=== PATIENT | female | born 1990 | race Caucasian/White ===

== ENCOUNTER → 2019-11-03 18:18 | Outpatient (CLI) | payer SELFPAY ==
[2019-11-03 20:42] LABS: Chlamydia Trachomatis by PCR Negative (Negative); Neisserai gonorrhoeae by PCR Negative (Negative); Probe Check PASS; Sample Adequacy Control PASS; Specimen Processing Control PASS
[2019-11-09 09:04] LABS: HPV APTIMA, High Risk Positive (Negative)
[2019-11-09 09:05] LABS: HPV Reflexed? YES, CHARGE PATIENT
== END ==
PROVIDERS: Referring Provider Obstetrics & Gynecology; Visit Provider Obstetrics & Gynecology
DX: Z12.4 Encounter for screening for malignant neoplasm of cervix (principal); Z11.3 Encounter for screening for infections with a predominantly sexual mode of transmission
CPT/HCPCS: 87491; 87591; 87624; 88175; G0145

== ENCOUNTER → 2019-11-17 16:04 | Outpatient (CLI) | payer SELFPAY ==
[2019-11-17 16:39] LABS: Color, Urine Yellow (Yellow); Glucose, Dipstick Normal (Normal); Ketone-Dipstick Negative (Negative); Leukocyte Esterase-Dipstick Negative /ul (Negative); Nitrite-Dipstick Negative (Negative); Occult Blood-Urine 25 /ul (Negative); Protein-Dipstick Negative (Negative); Urine Bilirubin Dipstick Negative (Negative); Urine Clarity Sl. Cloudy (Clear); Urine Urobilinogen Normal (Normal); Urine pH 6.5 (5.0 - 8.0)
[2019-11-17 16:41] LABS: Absolute Lymphocyte Count 1.59 X10^3/uL (0.83-4.51); Absolute Neutrophil Count 7.1 X10^3/uL (2.0-7.7); Basophil# 0.02 X10^3/uL; Basophil% 0.2 % (0-1); Eosinophil# 0.05 X10^3/uL; Eosinophils% 0.5 % (0-5); Hematocrit 36.2 % (37-47); Lymphocyte # 1.59 X10^3/ul (4.0); Lymphocyte % 17.2 % (19-41); Mean Corp Hgb Conc 33.1 g/dL (32-36); Mean Corpuscular Hgb 28.9 pg (27.0-32.0); Mean Corpuscular Volume 87.2 fL (81-99); Mean Platelet Vol. 9.3 fl (6.2-12.0); Monocyte# 0.42 X10^3/uL; Monocyte% 4.6 % (0-10); NRBC Flagged by Analyzer 0 % (0-5); Neutrophil # 7.12 X10^3/uL (2.7-7.7); Neutrophil % 77.3 % (47-70); Platelet Count 230 K/mm3 (150-450); RBC Distribution Width CV 13.4 % (11.6-14.6); RBC Distribution Width SD 41.5 fl (35.1-43.9); Red Blood Count 4.15 M/mm3 (4.2-5.4); White Blood Count 9.2 K/mm3 (4.4-11.0)
[2019-11-17 18:09] LABS: Thyroid Stim Hormone (TSH) 0.57 uIU/mL (0.358-3.74)
[2019-11-18 12:56] LABS: HIV - WCH Non-Reactive (Nonreactive); Hepatitis B Surface Antigen Non-Reactive (Nonreactive); Hepatitis C Antibody Non-Reactive (Nonreactive); Rubella IgG 148.5 IU/mL
[2019-11-24 02:20] LABS: Prenatal RPR NONREACTIVE (NONREACTIVE)
== END ==
PROVIDERS: PCP Family Medicine; Referring Provider Obstetrics & Gynecology; Visit Provider Obstetrics & Gynecology
DX: Z34.81 Encounter for supervision of other normal pregnancy, first trimester (principal)
CPT/HCPCS: 36415; 81002; 84443; 85025; 86703; 86762; 86803; 87340

== ENCOUNTER → 2020-03-29 14:43 | Outpatient (CLI) | payer SELFPAY ==
[2020-03-29 17:03] LABS: Hematocrit 32.5 % (37-47); Hemoglobin 10.4 g/dL (12.0-15.0); Mean Corpuscular Volume 90.5 fL (81-99); Platelet Count 268 K/mm3 (150-450); RBC Distribution Width CV 13.1 % (11.6-14.6); RBC Distribution Width SD 43.5 fl (35.1-43.9); Red Blood Count 3.59 M/mm3 (4.2-5.4); White Blood Count 10.5 K/mm3 (4.4-11.0)
[2020-03-29 17:22] LABS: Glucose Challenge Gest 1H 50g 166 mg/dL (70-140)
== END ==
PROVIDERS: Visit Provider Obstetrics & Gynecology
DX: Z34.83 Encounter for supervision of other normal pregnancy, third trimester (principal)
CPT/HCPCS: 36415; 82950; 85027

== ENCOUNTER → 2020-04-06 07:04 | Outpatient (CLI) | payer SELFPAY ==
[2020-04-06 07:43] LABS: Glucose GTT-Gestation. Fasting 85 mg/dL (<105)
[2020-04-06 09:02] LABS: Glucose GTT-Gestational 1 Hr 160 mg/dL (<190)
[2020-04-06 10:39] LABS: Glucose GTT-Gestational 2 Hr 129 mg/dL (<165)
[2020-04-06 11:17] LABS: Glucose GTT-Gestational 3 Hr 106 L (<145)
== END ==
PROVIDERS: Referring Provider Obstetrics & Gynecology; Visit Provider Obstetrics & Gynecology
DX: O24.912 Unspecified diabetes mellitus in pregnancy, second trimester (principal)
CPT/HCPCS: 36415; 82951; 82952

== ENCOUNTER → 2020-05-24 16:38 | Outpatient (CLI) | payer SELFPAY | PROVIDERS: Visit Provider Obstetrics & Gynecology | DX: Z36.85 Encounter for antenatal screening for Streptococcus B (principal) | CPT/HCPCS: 87077; 87081; 87186 ==

== ENCOUNTER 2020-06-13 18:55 | Inpatient (IN) | payer SELFPAY ==
[2020-06-13 19:38] VITALS: BP 124/69; PULSE 88; TEMP 36.6; O2SAT 97
[2020-06-13 20:25] LABS: Absolute Lymphocyte Count 1.64 X10^3/uL (0.83-4.51); Absolute Neutrophil Count 5.6 X10^3/uL (2.0-7.7); Basophil# 0.01 X10^3/uL; Basophil% 0.1 % (0-1); Eosinophil# 0.06 X10^3/uL; Eosinophils% 0.8 % (0-5); Hematocrit 35.7 % (37-47); Hemoglobin 11.8 g/dL (12.0-15.0); Lymphocyte # 1.64 X10^3/ul (4.0); Mean Corp Hgb Conc 33.1 g/dL (32-36); Mean Corpuscular Hgb 29.6 pg (27.0-32.0); Mean Corpuscular Volume 89.7 fL (81-99); Mean Platelet Vol. 9.8 fl (6.2-12.0); Monocyte# 0.43 X10^3/uL; Monocyte% 5.5 % (0-10); NRBC Flagged by Analyzer 0 % (0-5); Neutrophil # 5.64 X10^3/uL (2.7-7.7); Neutrophil % 72.1 % (47-70); Platelet Count 245 K/mm3 (150-450); RBC Distribution Width CV 14.1 % (11.6-14.6); RBC Distribution Width SD 46.3 fl (35.1-43.9); Red Blood Count 3.98 M/mm3 (4.2-5.4); White Blood Count 7.8 K/mm3 (4.4-11.0)
[2020-06-13 20:48] VITALS: BMI 30.1
[2020-06-13] MEDS: miSOPROStol 25 MCG TABLET PO (20:59)
[2020-06-13 21:15] VITALS: TEMP 36.5
[2020-06-14] VITALS (40 sets, daily range): BP systolic 106–147; BP diastolic 51–84; PULSE 51–93; RESP 14–16; TEMP 36.3–37.2; O2SAT 97–100
[2020-06-14] MEDS: Lactated Ringers 1,000 ML 50 ML IV (01:05)
[2020-06-14] MEDS: Lactated Ringers 500 ML 999 ML IV ×2 (01:05→10:27)
[2020-06-14] MEDS: Oxytocin 30 units/NS 500 ml 30 UNITS/500 ML IV.SOLN IV (03:05)
--- NOTE | 2020-06-14 09:27 | HP.PCM_ITS ---
History and Physical Date of Admission: 06/14/20 ACOG ANTEPARTUM RECORD - HISTORY AND PHYSICAL (06/14/2020) Name: NISSAJOHANNA ELVIA History of This : This is a 30-year-old who presents for induction at 39+ weeks gestation for nonreassuring heart tones. care has been uneventful except for baby having a two-vessel umbilical cord with nonstress tests weekly and recently 3 times per week. Patient is also a smoker. In the office deceleration was noted and patient desires proceeding with induction. Biophysical profile on June 13 was 8 out of 8. OB Physician: TORY 's Physician: UNDECIDED ...................................................................... : 1990 Age: 30 Address: [address] [place] [address] Phone: [phone]) [phone] ([phone] Insurance Carrier: Emergency Contact: CHIRAG ELENA [phone] ...................................................................... Final MIKE: 06/18/20 By Ultrasound: 9 weeks 3 days PARITY: (G-Total Pregnancies P-Fullterm,Premature,Induced AB,Spont AB, Ectopics, Multiple,Living) MIKE CONFIRMATION: By LMP: 09/12/19 Initial Exam: 06/18/20 By First Ultrasound Exam: 06/21/20 Final MIKE: 06/18/20 OB PROBLEM LIST: 2V cord; check growth 33-34 weeks; start NST weekly at 36 weeks 3 hour GTT normal AFP and CF testing declined planned High situational stress (mostly work) Hx of depression/anxiety, past treatment 7 years ago. EPDS = 9. Smokes 1/2 ppd, trying to quit Undecided about epidural ALLERGIES: Nickel Itching of skin MEDICATIONS: ferrous sulfate 325 mg (65 mg iron) tablet One pill by mouth twice a day 28 mg iron-800 mcg tablet One pill by mouth once a day SOCIAL HISTORY: Smoking - 1/2 pack/day--advised to quit Alcohol Use - socially not while Diet - no special diet Lifestyle - moderate stress lifestyle and Exercise - active work Employer - [employer] Job Description - Payroll/bookkeeping. 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 HISTORY DEL DATE GEST LAB WT LB WT OZ TYPE ANES LABOR TX ANTEPARTUM FLOW CHART VISIT GE RTC FU F F UT U U DATE WK MD WKS HT PN HR M SS BP ED WT UT GL D EF ST __ ____ ___ __ __ ___ __ __ __ ___ __ __ __ ___ __ 09 Jun JMW 6 38 V + + 118/74 0 161 - - 07 Jun JMW .2 38 V + + 120/58 0 160 - - 2+ 80 -2 03 Jun JMW 1 37 + + 116/76 0 161 - - May JMW 1 36 + + 110/68 0 161 - - May JM 1 36 V + + 116/62 0 161 tr - cl May JMW 2 32 + + 132/60 0 155 ne ne May 05 JMW 3 31 + + 132/64 0 150 tr ne Apr 02 JMW 3 28 + + 110/70 0 149 - tr Feb 26 JMW 4 24 + + 112/68 0 144 - - Jan 22 JMW 4 20 + + 102/60 0 141 - - Jan 19 JMW 4 + - 122/62 0 141 - - Dec 16 JMW 4 + - 110/58 0 139 tr - November 11 JMW 4 U+ US 110/62 0 0 - - ANTEPARTUM NOTE(S): Jun 13 2020: Interested in induction Jun 11 2020: ?decel, check BPP; good FM; declines induction Jun 07 2020: Good FM, considering induction May 30 2020: Doing Well, reactive NST May 24 2020: May 10 2020: heartburn, Pepcid Apr 19 2020: Good FM Mar 29 2020: feeling well. Glucola drawn today. AM Mar 01 2020: Glucola/Instructions Given,Good FM Feb 02 2020: Sono today, Good FM,Feeling Well Jan 10 2020: see note, Declines AFP Dec 14 2020: see note November 16 2020: colposcopy c/w CALLY I COMPREHENSIVE ANTEPARTUM NOTE(S): Jun 13 2020: Elvia is here for her NST at 39 w 2 d. She states I don't feel too bad. Elvia reports good FM. She states that she has been feeling a lot of tightening, and some low back pain on my left hip; all irregular at this time. She denies spotting/LoF. She reports that she noted small amount of spotting after SVE on Thursday. No edema noted. Discussed quitting smoking, Elvia states I have cut back, but I'm having trouble quitting. She reports that she is interested in having labor induced. NST reactive, read per Dr. Siegel. AW Jun 13 2020: Induction scheduled for this evening at 1900 with questions answered and consents signed. I spoke with Anika DORSEY. DEBBI Jun 11 2020: Elvia is here for her NST followed by visit at 39w. No edema. Baby active. Interested in VE today but states she'll come when she comes. Quiet today. Answers questions but volunteers no extra info. Acoustic stim used on NST. Read as Jun 07 2020: Elvia is here at 38 w 3 d for her NST. She states that she is feeling pretty well, and she reports FM. She denies spotting/LoF. Mild occasional cramping noted. Elvia states that on Thursday night, she noted more contractions for several hours. No edema noted. NST reactive, read per Dr. Siegel. Several mild ctx's noted on EEFM tracing, Elvia feels some as tightening, some she does not feel. AW May 30 2020: H taken to OB. tkg May 30 2020: Elvia is here at 37 w 2 d for her NST. She states that she feels well, and notes good FM. She denies spotting/LoF. Occasional mild cramping felt. On Thursday and Thursday night, she noted, what she describes to be, likely round ligament pain. No edema noted. Seven ctx's noted on EEFM during NST; Elvia feels ctx's as tightening. NST reactive, read per Dr. Siegel. AW May 24 2020: Elvia is here for a NST at 36 w 3 d. She states that she feels good, and notes good FM. She denies spotting/cramping/LoF. No edema noted. NST/EEFM explained. NST reactive, read per Dr. Delmy Dinh. Several mild ctx's noted during NST, Elvia felt one of these. AW May 24 2020: 36wk, GBS collected today. 2VC, NST reactive. Failed 1hr GTT, passed 3hr GTT. JM May 10 2020: Elvia is here for PNV. Having some issues with occ heartburn.. Good FM. No CTX noticed. No edema of ankles, feet or hands. Urine dipped neg and neg. No other concerns. LSS Apr 19 2020: Elvia is here for PNV. States she is feeling good. No edema noted. Good FM. No concerns at this time. Urine dipped tr and neg. LSS Jan 11 2020: Elvia is here for a PNV. No FM yet. No complaints or concerns. MK Dec 15 2019: Elvia is here for a PNV. Not feeling FM. No edema. Has mild nausea and fatigue. No other complaints or concerns. MK Nov 18 2019: TELEHEALTH NOB VISIT. Elvia is a 29 yr old with an MIKE of 06/18/2020; GA is 9 w 4 d. She states that she is feeling well, and denies N/V. Office practice patterns reviewed, labs drawn yesterday. Emergencies/danger signs to report, contacting the office after hours, round ligament pain, reporting a suspected UTI, and common OTC medications approved/not approved for use during . Delivery at [facility] is planned, she is undecided about having an epidural, and she will breastfeed. Childbirth ed and classes encouraged. 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 She reports a history of depression/anxiety, with past treatment for depression. EPDS yesterday was 9. She states that she feels some anxiety about COVID-19, but that she has a good support system and that she has good coping mechanisms. She also breeds/shows horses; discussed safety around horses; she states that she is currently still riding and plans to discuss restrictions about horse back riding with Dr. Siegel at her next PNV. 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 Discussed lifting restrictions, and she states that this will not be a problem. Elvia states that she continues to smoke 1/2 ppd, but has cut back and is trying to quit. She denies use of drugs or ETOH. She declines AFP and CF testing, consent signed as such yesterday. She has a first cousin (maternal) with Down Syndrome. Water and dietary needs for reviewed, including caloric needs, limiting empty calories, need for only 300 extra calories per day, and limiting caffeine to one cup a day. Food safety during discussed, she states that she has grown up drinking pasteurized milk, advised to stop this during and why. No indoor cats. Elvia states that she understands all information provided during 40 minutes NOB visit, and has no questions following same. AW Nov 17 2019: Elvia presents here today for Sono, PNV and Colposcopy for recent pap with ASCUS +HPV. Denies nausea or other concerns at this ti wi. Questions answered for Colposcopy and consent signed. labs drawn via [facility] Tech and sent to Lab. MSAFP and CF declined with form signed. [employer] Depression Scale form filled out with a score of 9 . DEBBI Nov 03 2019: Elvia presents here today for Missed Menses appointment. 29 y.o. G 1 P 0 smoker of 1/2 to 3/4 PPD (ATQ) with history of using Depo Injections and then switched to an OCP of [place] with every three month menses, that she had stopped in . LMP of 20 lasting her average of 4 days. UPT is positive today in our Office. Denies spotting/bleeding thus far in . Presents at 7 weeks 2 days with an approximate MIKE 12-14-20. Denies nausea thus far and admits to tender breasts. Verbal history of normal pap screenings with last approximately in 2017 or 2018. Medications and Allergies listed and currently taking an OTC Vitamin without problems. Educational Materials given. DEBBI Nov 03 2019: ok REVIEW OF SYSTEMS: GENERAL - Denies fever, or chills SKIN - Denies rash, new skin lesions, or change in moles EYES - Denies blurred vision, or change in visual acuity EARS - Denies ear pain, or difficulty hearing NOSE - Denies nasal congestion, discharge, or bleeding MOUTH - Denies sore throat, or difficulty swallowing NECK - Denies pain or swelling RESPIRATORY - Denies shortness of breath, cough, wheezing CARDIOVASCULAR - Denies palpitations, chest pain, orthopnea, PND, peripheral edema, syncope or claudication GASTROINTESTINAL - Denies nausea, vomiting, diarrhea, constipation, Denies abdominal pain, melena and or bright red blood GENITOURINARY - Denies dysuria, frequency of urination, urgency, or hesitancy MUSCULOSKELETAL - Denies joint or muscle pain, or back pain NEUROLOGICAL - Denies localized numbness, weakness, or tingling PSYCHIATRIC - Denies depression, anxiety, substance abuse or suicide attempts ENDOCRINE - Denies heat or cold intolerance, weight loss or gain, increasing thirst HEMATO-IMMUNOLOGIC - Denies easy bruising, bleeding, oral ulcerations or recurrent infections GENETICS SCREENING: Age 35+ years: No Thalassemia: No Neural Tube Defect: No Down Syndrome: Yes Cousin ZHAO-SACHS: No Sickle Cell Disease: No Hemophilia: No Musc. Dystrophy: No Cystic Fibrosis: No-declines screening [place] Chorea: No Mental Retardation: No Fragile X: No Other genetic: No Other defects: No SABs/still births: No Drugs since LMP: No INFECTION HISTORY: High risk AIDS: No High risk Hepatitis: No Exposed to TB: No Exposed to Herpes: No Rash/viral illness since LMP: No History of STD: No Comments: ASCUS pap/+HPV with Colpo 11/17/2019 MENSTRUAL HISTORY: *Menses Amount/Duration: 4 daysMenses Regularity: RegularFrequency: every 3 monthsMenarche (Age Onset): 16* PAST SUMMARY: PARITY: 1. Total Pregnancies............ 1 2. Full Term Pregnancies........ 0 3. Premature.................... 0 4. Abortions - Induced.......... 0 5. Abortions - Spontaneous...... 0 6. Ectopics..................... 0 7. Multiple Births.............. 0 8. Living Children.............. 0 PHYSICAL EXAMINATION General Appearence: 30 yo female in no acute distress Vital Signs: AF, VSS Heart: RRR without rubs or gallops Lungs: CTA x 2 Breasts: deferred Abdomen: gravid Pelvis: Cervix: 2+/80% before Cytotec overnight but now /-2, rupture of membranes shows clear fluid Presentation: cephalic Station: -2 Fetus: Size: AGA Movement: present Heart: present Labs for : ELVIA PARKER since 09/22/2019 ORDER DATEIN DESCRIPTION VALUE UNITS RANGE A+ COMMENT COVID 19 AG RAPID (RN COLLECT) 06/13/20 NOTE Original Ordering Provider: Chance Siegel COVID AG -RAPID *Negative results from patients with symptom onset beyond five days should be treated as presumptive and confirmed by a molecular assay if clinically necessary. Negative results should not be used as the sole basis for treatment or for patient management. *Positive results do not differentiate between SARS-CoV and SARS-CoV-2. If differentation of the specific SARS virus is desired an additional sample and an additional order is required. * This test has not been FDA cleared or approved; the test has been authorized by FDA under an Emergency Use Authorization (EAU) for use by laboratories certified under CLIA that meet the requirements to perform moderate, high, or waived complexity tests. Normal Reference Range: Negative Testing performed on RadPadia analyzer FRANCISCO (lateral flow immunofluorescent assay) SARS-CoV-2 (COVID 19) Negative TYPE AND SCREEN 06/13/20 REDRAW. PREVIOUS SPECIMEN REJECTED DUE TO MISLABELED. 06/13/202034 Reason for Type AND Screen/Red Cells: Labor [facility]~[address] [place], [address]~ BLOOD TYPE GEL O POSITIVE N ANTIBODY SCREEN NEGATIVE N CBC W/DIFF, AUTOMATED 06/13/20 NOTE Original Ordering Provider: Chacne Siegel WBC 7.8 K/mm3 4.4-11.0 RBC 3.98 M/mm3 4.2-5.4 L HGB 11.8 g/dL 12.0-15.0 L HCT 35.7 % 37-47 L MCV 89.7 fL 81-99w MCH 29.6 pg 27.0-32.0 MCHC 33.1 g/dL 32-36 RDW CV 14.1 % 11.6-14.6 RDW SD 46.3 fl 35.1-43.9 H PLT 245 K/mm3 150-450 MPV 9.8 fl 6.2-12.0 NEUT% 72.1 % 47-70 H LY% 21.0 % 19-41 MONO% 5.5 % 0-10 EO% 0.8 % 0-5 BASO% 0.1 % 0-1 IM GRAN % 0.500 % 0.0-0.9 IG% - Immature Granulocytes (promyelocytes, myelocytes and metamyelocytes) > 1% indicates that a LEFT SHIFT is Present. ABSOLUTE NEUT 5.6 X10 3/uL 2.0-7.7 ABSOLUTE LYMPH 1.64 X10 3/uL 0.83-4.51 NRBC, FLAGGED 0 % 0-5 CULTURE, GROUP B STREPTOCOCCUS 05/24/20 NOTE Original Ordering Provider: Narinder RESENDIZ Culture ORGANISM 1: Streptococcus agalactiae (B) Amount Growth Growth Streptococcus agalactiae (B): REACTION Ampicillin $ <=0.25 S Benzylpenicillin NF 0.12 S Ceftriaxone $ <=0.12 S Clindamycin $$ <=0.25 S Inducable Clindamycin Resistan NEG Linezolid $$$$ <=2 S Vancomycin $ 0.5 S Reference Range: S= Susceptible, I= Intermediate, R= Resistant MICS are expressed in micrograms per mL (NF) indicates non-formulary drug at [facility]. Approval by Infectious Disease Specialist required before non-formulary drugs may be ordered and/or dispensed. Testing performed on Vitek 2 instrument Reviewed by CHANCE GESTATIONAL GTT 3HR 100G 04/06/20 NOTE Original Ordering Provider: Chance Siegel GLU GTT-FASTING 85 mg/dL <105 GLUCOSE TOLERANCE TEST FOR Reference Interval GESTATIONAL DIABETES Fasting <105 mg/dL 1 hour <190 mg/dl 2 hour <165 mg/dl 3 hour <145 mg/dl GLU GTT- 1HR 160 mg/dL <190 GLU GTT- 2HR 129 mg/dL <165 GLU GTT- 3HR 106 L <145 Reviewed by CHANCE GLUCOSE CHALLENGE GEST 1H 50G 03/29/20 NOTE Original Ordering Provider: Chance Siegel GLU GEST 50G 1H 166 mg/dL 70-140 H Reviewed by CHANCE CBC-COMPLETE BLOOD CNT NO DIFF 03/29/20 NOTE Original Ordering Provider: Chance Siegel WBC 10.5 K/mm3 4.4-11.0 RBC 3.59 M/mm3 4.2-5.4 L HGB 10.4 g/dL 12.0-15.0 L HCT 32.5 % 37-47 L MCV 90.5 fL 81-99 MCH 29.0 pg 27.0-32.0 MCHC 32.0 g/dL 32-36 RDW CV 13.1 % 11.6-14.6 RDW SD 43.5 fl 35.1-43.9 PLT 268 K/mm3 150-450 MPV 10.0 fl 6.2-12.0 Reviewed by CHANCE RPR 11/17/19 NOTE Original Ordering Provider: Chance Siegel RPR NONREACTIVE NONREACTIVE Reviewed by CHANCE HEPATITIS C ANTIBODY 11/17/19 NOTE Original Ordering Provider: Chance Siegel HEPATITIS C AB Non-Reactive Nonreactive Non Reactive: < 0.8 Equivocal: >/= 0.8 to < 1.0 Reactive: >/= 1.0 The CDC recommends that a reactive/equivocal HCV antibody result be followed up by the HCV Nucleic Acid Amplification test (533004) Reviewed by CHANCE HEPATITIS B SURFACE ANTIGEN 11/17/19 NOTE Original Ordering Provider: Chance Siegel HEPB SURFACE AG Non-Reactive Nonreactive Reviewed by CHANCE HIV - [facility] 11/17/19 NOTE Original Ordering Provider: Chance Siegel HIV - [facility] Non-Reactive Nonreactive Reviewed by CHANCE RUBELLA IGG 11/17/19 NOTE Original Ordering Provider: Chance Siegel RUBELLA IGG 148.5 IU/mL Antibody results Interpretation of Immune Status < 5 IU/ml Presumed Non-immune 5 - < 10 IU/ml Equivocal > or = 10 IU/ml Presumed Immune Reviewed by CHANCE T AND S-NO CHARGE W/PNP 11/17/19 Reason for Type AND Screen/Red Cells: Surgery? N [facility]~[address] [place], [address]~ BLOOD TYPE GEL O POSITIVE N AB SCREEN GEL NEGATIVE N Reviewed by CHANCE THYROID STIM HORMONE (TSH) 11/17/19 NOTE Original Ordering Provider: Chance Siegel TSH 0.57 uIU/mL 0.358-3.74 Reviewed by CHANCE CBC W/DIFF, AUTOMATED 11/17/19 NOTE Original Ordering Provider: Chance Siegel WBC 9.2 K/mm3 4.4-11.0 RBC 4.15 M/mm3 4.2-5.4 L HGB 12.0 g/dL 12.0-15.0 HCT 36.2 % 37-47 L MCV 87.2 fL 81-99 MCH 28.9 pg 27.0-32.0 MCHC 33.1 g/dL 32-36 RDW CV 13.4 % 11.6-14.6 RDW SD 41.5 fl 35.1-43.9 PLT 230 K/mm3 150-450 MPV 9.3 fl 6.2-12.0 NEUT% 77.3 % 47-70 H LY% 17.2 % 19-41 L MONO% 4.6 % 0-10 EO% 0.5 % 0-5 BASO% 0.2 % 0-1 IM GRAN % 0.200 % 0.0-0.9 IG% - Immature Granulocytes (promyelocytes, myelocytes and metamyelocytes) > 1% indicates that a LEFT SHIFT is Present. ABSOLUTE NEUT 7.1 X10 3/uL 2.0-7.7 ABSOLUTE LYMPH 1.59 X10 3/uL 0.83-4.51 NRBC, FLAGGED 0 % 0-5 Reviewed by CHANCE URINALYSIS, ROUTINE (DIPSTICK) 11/17/19 NOTE Original Ordering Provider: Chance Siegel COLOR Yellow Yellow CLARITY Sl. Cloudy Clear GLUCOSE, UR Normal mg/dl Normal BILIRUBIN URINE Negative mg/dL Negative w KETONE UR Negative mg/dl Negative SP.GR. DIPSTX 1.020 1.002-1.030 PH UR 6.5 5.0 - 8.0 PROT DIPSTX Negative mg/dl Negative UROBILI Normal mg/dl Normal NITRITE UR Negative Negative OCCULT BLOOD-UR 25 /ul Negative H LEUK ESTERASE Negative /ul Negative Reviewed by CHANCE CELAYA IG W/REFLEX HR HPV APTIMA 11/03/19 NOTE Original Ordering Provider: Chance Siegel DIAGN . H EPITHELIAL CELL ABNORMALITY. ATYPICAL SQUAMOUS CELLS OF UNDETERMINED SIGNIFICANCE (ASC-US). ADEQ . Satisfactory for evaluation. Endocervical and/or squamous metaplastic cells (endocervical component) are present. RECOMM . H Suggest follow up as clinically appropriate. PERFORM . Sherry Elizabeth, Lead Person (ASCP) SIGN . Alfredo Segovia MD, Pathologist PATH PROV ICD10 . R87.610 TEST METHOD . This liquid based ThinPrep(R) pap test was screened with the use of an image guided system. COMM . . PAPSMR . The Pap smear is a screening test designed to aid in the detection of premalignant and malignant conditions of the uterine cervix. It is not a diagnostic procedure and should not be used as the sole means of detecting cervical cancer. Both false-positive and false-negative reports do occur. HPV RFLX . See below for HPV testing results. HPV APTIMA, HR Positive Negative H This nucleic acid amplification test detects fourteen high- risk HPV types (16,18,31,33,35,39,45,51,52,56,58,59,66,68) without differentiation. Performed at: [address] [id number] Video Effects Editor: Kell Arenas MD, Phone: [phone] Performed at: =[address] [id number] Video Effects Editor: Kell Arenas MD, Phone: [phone] Reviewed by CHANCE ANDREW/JUAN [facility] BY PCR 11/03/19 NOTE Original Ordering Provider: [facility] Negative Negative JUAN BY PCR Negative Negative Reviewed by [facility] PROVIDER SIGNATURE ( REQUIRED) Impression /Plan: 39+ week intrauterine with nonreassuring heart tones. Plan Cytotec induction followed by rupture of membranes. Preparations in progress for delivery.
[2020-06-14] MEDS: Ondansetron 4 MG/2 ML Vial IV (09:49)
[2020-06-14] MEDS: 0.9% Saline Lock 10 ML Syringe IV (09:50)
[2020-06-14] MEDS: Oxytocin 30 units/NS 500 ml 30 UNITS/500 ML IV.SOLN 334 UNITS IV (12:07)
--- NOTE | 2020-06-14 12:16 | PCM.OPRPT ---
Vaginal Delivery Maternal Presentation: Medically Indicated Induction - Two-vessel cord and nonreassuring heart tones Method of Induction: Amniotomy, Cytotec Amniotic Membrane Rupture Type: Artificial Amniotic Fluid Description: Clear Final MIKE: 06/18/20 Final MIKE Source: US <20 weeks Gestational age: 39 Weeks and 3 Days Date of Procedure: 06/14/20 Pre-Operative Diagnosis: IUP, Two-Vessel Cord, Nonreassuring Heart Tones Post-Operative Diagnosis: IUP, Two-Vessel Cord, Nonreassuring Heart Tones Surgery/ Procedure Performed: Spontaneous Vaginal Delivery Type of Anesthesia: Epidural Description of Procedure: Spontaneous vaginal delivery of a viable female infant with Apgars of 8/9 from an occiput anterior presentation with clear amniotic fluid and normal placenta except for being two-vessel. No episiotomy. Second-degree midline laceration repaired with 3-0 Rapide suture under epidural. Baby delivered precipitously by nursing and I entered the room approximately 2 to 3 minutes later to deliver placenta and perform the laceration repair; sponges okay. Delivery physician of record: Moustapha Siegel MD. Presentation: Vertex Placental Delivery Description: Spontaneous Placenta Disposition: [facility] Cord Vessel Description: 2 Vessels Cord Entanglement: Around neck x 1, loose Estimated Blood Loss: 250 cc Infant A gender: Female (1 minute): 8 (5 minute): 9 Episiotomy Description: None Laceration: Midline, 2nd degree Medications given after delivery: IV Pitocin Complications: None
--- NOTE | 2020-06-14 12:22 | DCINST_ITS ---
<Moustapha Siegel - Last Filed: 06/14/20 12:22> Discharge Diet: No Restrictions Discharge Activity: May Shower, May Take a Tub Bath May resume sexual activity in: 4-6 weeks Additional Activity Instructions:: Nothing in the vagina for 4-6 weeks. You may return to work/school in 6 weeks. Call your doctor if you observe: Fever of 101 or Higher, Inability to urinate, Inability to have a bowel movement, Using more than one pad per hour Additional Instructions: If you experience any of the following, contact your healthcare provider. * Bleeding that soaks a pad every hour for 2 hours * Fever 100.4 or higher * Unrelieved incision or abdominal pain * Swelling, redness, discharge or bleeding from your incision or episiotomy site * Your incision begins to separate * Problems urinating (including inability to urinate or burning while urinating). * Visual changes * Severe headache * Flu-like symptoms * Pain or redness in one of both of your breasts * Pain, warmth, tenderness or swelling in your legs, especially the calf area * Frequent nausea and vomiting * Symptoms of depression or anxiety If you experience any of the following, call 911 or go to the nearest Emergency Room. * Chest pain * Problems breathing * Seizure activity * Partial or complete paralysis of a body part, slurred speech, weakness or drooping of the face, or a sudden inability to walk or hold your balance Allergies/Adverse Reactions: Allergies nickel Adverse Reaction (Verified 06/13/20 20:46) Itching Medications to take at Discharge Ferrous Sulfate 325 mg PO DAILY 06/13/20 Caplet 1 tab PO DAILY 06/13/20 Please Follow Up With: Moustapha Siegel MD - [phone] When: Call to make an appointment with your doctor in 6 weeks. Primary Care Physician: Care Physician,No Primary [Primary Care Provider] - Test Results: Test results from this visit will be discussed in further detail at your follow- up appointment, if applicable. <Narinder Dinh - Last Filed: 06/15/20 08:38> Additional Instructions: If you experience any of the following, contact your healthcare provider. * Bleeding that soaks a pad every hour for 2 hours * Fever 100.4 or higher * Unrelieved incision or abdominal pain * Swelling, redness, discharge or bleeding from your incision or episiotomy site * Your incision begins to separate * Problems urinating (including inability to urinate or burning while urinating). * Visual changes * Severe headache * Flu-like symptoms * Pain or redness in one of both of your breasts * Pain, warmth, tenderness or swelling in your legs, especially the calf area * Frequent nausea and vomiting * Symptoms of depression or anxiety If you experience any of the following, call 911 or go to the nearest Emergency Room. * Chest pain * Problems breathing * Seizure activity * Partial or complete paralysis of a body part, slurred speech, weakness or drooping of the face, or a sudden inability to walk or hold your balance Test Results: Test results from this visit will be discussed in further detail at your follow- up appointment, if applicable.
[2020-06-14] MEDS: Ibuprofen 600 MG Tablet PO (16:51)
[2020-06-15 04:01] VITALS: BP 126/67; PULSE 78; RESP 16; TEMP 36.6
[2020-06-15 08:11] VITALS: BP 117/76; PULSE 62; RESP 16; TEMP 36.6
--- NOTE | 2020-06-15 08:39 | PN.OBGYN_ITS ---
Subjective: No overnight complaints. Pain well controlled. Minimal lochia. - Physical Exam Vitals/I&O's: Vital Signs Temp Pulse Resp BP Pulse Ox 97.8 F 62 16 117/76 100 06/15/20 08:11 06/15/20 08:11 06/15/20 08:11 06/15/20 08:11 06/14/20 12:15 Oxygen Delivery Method Room Air Weight: 164 lb 12.8 oz Body Mass Index (BMI) 30.1 Intake and Output for Last 24 Hours 06/13/20 06/14/20 06/15/20 23:59 23:59 23:59 Intake Total 2191.40 / 2191.40 Output Total 550 / 550 Balance 1641.40 / 1641.40 General: Alert, Oriented x3, Cooperative, No apparent distress HEENT: Atraumatic, PERRLA, Normocephalic Oral: Moist Mucosa Neck: Supple, No JVD Abdomen: Soft, Non Tender, - - Fundus firm and below umbilicus Extremities: No clubbing, No cyanosis, No edema Neurological: Neuro grossly intact Psych/Mental Status: Normal Affect, Appropriate, Alert and oriented to time, place, person, mood and affect Microbiology Past 72 Hours 06/13/20 20:45 Mucosa - Nose SARS-CoV-2 Antigen (Rapid) - Final Current Medications Acetaminophen (Acetaminophen 500 Mg Tablet) 1,000 mg PO Q8H PRN PRN PRN Reason: Pain Score 1-3 Bisacodyl (Bisacodyl 10 Mg Suppository) 10 mg RECTAL UD PRN PRN Reason: If no BM Dibucaine (Dibucaine 30 Gm Tube) 1 applic TOPICAL TID PRN PRN; Protocol PRN Reason: Discomfort Hydrocortisone (Hydrocortisone 2.5% Crm) 1 applic TOPICAL TID PRN PRN; Protocol PRN Reason: Discomfort Ibuprofen (Ibuprofen 600 Mg Tablet) 600 mg PO Q6H PRN PRN PRN Reason: Pain Score 1-3 Last Admin: 06/14/20 16:51 Dose: 600 mg Documented by: Methylergonovine Maleate (Methylergonovine 0.2 Mg/Ml Ampul) 0.2 mg IM X1 PRN PRN Reason: Excess bleeding/uterine atony Ondansetron HCl (Ondansetron 4 Mg/2 Ml Vial) 4 mg IV Q4H PRN PRN PRN Reason: Nausea Oxycodone HCl (Oxycodone 5 Mg Tablet) 5 - 10 mg PO Q4H PRN PRN PRN Reason: Pain Score 4-10 Senna/Docusate Sodium (Senna/Docusate Sodium 1 Tablet) 1 - 2 tablet PO DAILY PRN PRN PRN Reason: Constipation Simethicone (Simethicone 80 Mg Tablet) 80 mg PO PCHS PRN PRN Reason: Indigestion/Stomach pain Sodium Chloride (0.9% Saline Lock 10 Ml Syringe) 5 - 15 ml IV UD PRN PRN Reason: SALINE FLUSH Zolpidem Tartrate (Zolpidem Tartrate 5 Mg Tablet) 5 mg PO QHS PRN PRN PRN Reason: Insomnia Medical Necessity - Tobacco Use Smoking Status: Current every day smoker Assessment/Plan day 1. Pain well controlled. Breast-feeding. 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
[2020-06-15 12:07] VITALS: BP 120/61; PULSE 72; RESP 16; TEMP 36.6
[2020-06-15 17:18] VITALS: BP 122/69; PULSE 76; RESP 14; TEMP 36.4
== END 2020-06-15 17:35 | disposition home or self-care (01) | DRG 807 ==
PROVIDERS: Admitting Provider Obstetrics & Gynecology; Referring Provider Obstetrics & Gynecology; Visit Provider Obstetrics & Gynecology
DX: O76 Abnormality in fetal heart rate and rhythm complicating labor and delivery (principal); O69.81X0 Labor and delivery complicated by cord around neck, without compression, not applicable or unspecified; Z37.0 Single live birth; O70.1 Second degree perineal laceration during delivery; O99.334 Smoking (tobacco) complicating childbirth; F17.210 Nicotine dependence, cigarettes, uncomplicated; Z3A.39 39 weeks gestation of pregnancy
CPT/HCPCS: 59025; 59050; 85025; 86850; 86900; 86901; 87426; 99218; J7120; A4216; G0378; J2405; J3490

== ENCOUNTER → 2020-07-25 14:41 | Outpatient (CLI) | payer OTHER, SELFPAY ==
[2020-07-31 09:27] LABS: HPV APTIMA, High Risk Positive (Negative)
[2020-07-31 09:28] LABS: HPV Reflexed? YES, CHARGE PATIENT
== END ==
PROVIDERS: Visit Provider Obstetrics & Gynecology
DX: Z12.4 Encounter for screening for malignant neoplasm of cervix (principal)
CPT/HCPCS: 87624; 88175; G0145

== ENCOUNTER 2020-12-02 22:23 | Emergency (ER) | payer SELFPAY ==
[2020-12-02 22:24] VITALS: BP 126/77; PULSE 110; RESP 18; TEMP 36.6; O2SAT 98; BMI 23.8
--- NOTE | 2020-12-02 22:33 | ED.RN ---
Woke up tigist with dull sharp pain in lower R pelvis with diarrhea, denies vomiting but has nausea. Reports she had 5 BMs within 5 hours, today. Denies colitis and ovarian cyst. Denies fever. States has back pain related to working with the mower.
--- NOTE | 2020-12-02 22:39 | EX.ED.DYSGE1 ---
HPI History of Present Illness Chief Complaint: Abd Pain Informant: patient and spouse/S.O. Narrative Narrative: 30-year-old female presents the emergency room with diarrhea and right lower quadrant pain. Patient states that she woke Neftali morning with right lower quadrant discomfort. Sometimes it will go across the entire lower abdomen. She notes mucousy diarrhea multiple times per day. She notes nausea/anorexia. She denies any fever or subjective fever. She notes the pain will sometimes worse with movement. Last menstrual period ended today. She denies any prior abdominal surgeries. PFSH PFSH no medical history Home Medications ciprofloxacin HCl 500 mg PO BID #20 tablet 12/03/20 [Rx Last Taken Unknown] hydrocodone-acetaminophen 1 tab PO Q6H PRN PRN 3 Days #12 tablet 12/03/20 [Rx Last Taken Unknown] metronidazole 500 mg PO Q8H #30 tab 12/03/20 [Rx Last Taken Unknown] ondansetron 4 mg PO Q8H PRN PRN #10 tab 12/03/20 [Rx Last Taken Unknown] Allergy/AdvReac Type Severity Reaction Status Date / Time nickel AdvReac Itching Verified 12/02/20 22:26 Surgical History History of surgery on upper extremity History of wisdom tooth extraction Social History (Updated 12/02/20 @ 22:[address] Nabil Mccarthy, DO) Smoking Status: Current every day smoker tobacco type: cigarettes substance use type: does not use ROS ROS ED Constitutional Constitutional ED: Denies chills or weight loss Eyes Eyes: Denies change in vision or diplopia ENT ENT ED: Denies ear pain, rhinorrhea or sore throat Cardiovascular Cardiovascular: Denies chest pain, orthopnea, palpitations or racing heartbeat Respiratory/Chest Respiratory/Chest: Denies cough, dyspnea or orthopnea Gastrointestinal Gastrointestinal: Reports abdominal pain, diarrhea and nausea; Denies vomiting Genitourinary Genitourinary ED: Denies dysuria, hematuria or urinary frequency Musculoskeletal Musculoskeletal: Denies arthralgias or myalgias Integumentary Denies abscess or rash Neurologic Neurologic: Denies headache(s) or weakness Psychiatric Psychiatric: Denies anxiety, depression, suicidal ideation or suicidal thoughts Endocrine Endocrinology: Denies polydipsia, polyphagia or polyuria Allergic/Immunologic Allergic/Immunologic ED: Denies mouth swelling, tongue swelling or urticaria EXAM Physical Exam Const Vital Signs: 12/02/20 22:24 12/02/20 22:43 12/03/20 00:39 Temperature 97.8 F 97.8 F 98.4 F Temperature Source Oral Oral Oral Pulse Rate 110 H 78 82 Respiratory Rate 18 16 16 Blood Pressure 126/77 H 126/77 H 110/69 Blood Pressure Mean 93 93 82 Pulse Ox 98 98 100 Oxygen Delivery Method Room Air Room Air Room Air 12/03/20 00:42 Temperature Temperature Source Pulse Rate Respiratory Rate Blood Pressure Blood Pressure Mean Pulse Ox 100 Oxygen Delivery Method Room Air Positive well nourished and well developed General Appearance ED: well developed HEENT Reports normocephalic, head/scalp atraumatic and moist mucous membranes Eyes PERRL and EOMs intact bilaterally Neck no lymphadenopathy, supple and no JVD Resp normal respiratory effort and clear to auscultation bilaterally Cardio regular rate, regular rhythm and no murmurs GI non-tender Palpation: soft and tender RLQ; Negative for guarding or rebound tenderness present Back/Spine no CVA tenderness and normal ROM Extremity normal to inspection General Extremety ED: Negative for edema General Extremity: Negative for edema Neuro oriented x3 and CN's II-XII intact bilaterally Sensorium / Orientation: alert Motor Exam: strength 5/5 throughout Psych mental status grossly normal Mood & Affect: Negative for depressed or tearful Skin no rashes or lesions noted and no wounds MDM MDM MDM Narrative Medical decision making narrative: Basic blood work is normal. Urinalysis normal. CT of the abdomen pelvis with oral and IV contrast was obtained. This demonstrates changes consistent with a pancolitis. Patient was able to give a stool specimen and will be sent. Patient has no history of colitis. We talked about the different forms of colitis and at this point she will be placed on Cipro and Flagyl. She will receive pain medication. She was advised she needs to follow-up and have colonoscopy arranged. Lab Data Attestation: I reviewed the patient's lab results. Labs: Laboratory Results - last 24 hr 12/02/20 12/02/20 12/02/20 22:36 22:50 22:50 WBC 7.6 RBC 4.92 Hgb 14.0 Hct 43.0 MCV 87.4 MCH 28.5 MCHC 32.6 RDW Std Deviation 42.8 RDW Coeff of Lance 13.2 Plt Count 279 MPV 9.2 Immature Gran % (Auto) 0.400 Neut % (Auto) 71.6 H Lymph % (Auto) 18.1 L [place] % (Auto) 8.2 Eos % (Auto) 1.3 Baso % (Auto) 0.4 Absolute Neuts (auto) 5.4 Absolute Lymphs (auto) 1.37 Nucleated RBC % 0 Sodium 140 Potassium 3.5 Chloride 106 Carbon Dioxide 25.0 Anion Gap 9 BUN 11 Creatinine 0.54 L Estim Creat Clear Calc 122.67 Est GFR (MDRD) Af Amer 173 Est GFR (MDRD) Non-Af 143 BUN/Creatinine Ratio 20.5 H Glucose 100 Calcium 8.4 L Total Bilirubin < 0.10 L AST 15 ALT 17 Alkaline Phosphatase 91 Total Protein 7.4 Albumin 3.4 Globulin 4.0 Albumin/Globulin Ratio 0.8 L Lipase 61 L Urine Color Yellow Urine Clarity Clear Urine pH 6.5 Ur Specific [place] 1.015 Urine Protein 15 H Urine Glucose (UA) Normal Urine Ketones Negative Urine Occult Blood 150 H Urine Nitrite Negative Urine Bilirubin Negative Urine Urobilinogen Normal Ur Leukocyte Esterase 25 H Urine RBC 0-5 SEEN Urine WBC 0-5 SEEN Ur Squamous Epith Cells 0 SEEN Urine Bacteria 0 SEEN Urine Mucus 0 SEEN Urine Test Negative Radiography Diagnostic Testing: Radiology Impression Abdomen/Pelvis CT 12/03/20 22:38 IMPRESSION: Mild diffuse thickening of the wall the colon which may represent pancolitis perhaps pseudomembranous colitis. There is no abscess or perforation. Individualized dose optimization techniques were used for this CT. at 0037 Reported and signed by: Tripp Wright MD Electronically Signed: Tripp Wright MD at 0:36 EDT Tel , Service support , Discharge Plan Triage Chief Complaint: Abd Pain ED Provider: Nabil Mccarthy Dx/Rx/DC Orders Clinical Impression: Acute colitis Prescriptions: New hydrocodone-acetaminophen [hydrocodone-acetaminophen] 1 TABLET tablet 1 tab PO Q6H PRN PRN (Reason: Pain) 3 Days Qty: 12 RF: 0 metronidazole [metronidazole] 500 MG tablet 500 mg PO Q8H Qty: 30 RF: 0 ciprofloxacin HCl [ciprofloxacin HCl] 500 MG tablet 500 mg PO BID Qty: 20 RF: 0 ondansetron [ondansetron] 4 MG tablet 4 mg PO Q8H PRN PRN (Reason: Nausea) Qty: 10 RF: 0 Primary Care Provider: Marika Maddox Referrals: Marika Maddox, [Primary Care Provider] - As soon as possible Activity Restrictions/Additional Instructions: As discussed there are many different types of colitis. Your stool studies will come back in a couple days. Some may come back earlier than others. You need to speak with your doctor about obtaining a colonoscopy has some forms of colitis need to be followed for long-term management. Disposition Disposition: Home, self care
[2020-12-02 22:43] VITALS: BP 126/77; PULSE 78; RESP 16; TEMP 36.6; O2SAT 98
[2020-12-02] MEDS: 0.9% Normal Saline 1,000 ML 1000 ML IV (22:59)
[2020-12-02 23:01] LABS: Absolute Lymphocyte Count 1.37 X10^3/uL (0.83-4.51); Absolute Neutrophil Count 5.4 X10^3/uL (2.0-7.7); Basophil# 0.03 X10^3/uL; Basophil% 0.4 % (0-1); Eosinophils% 1.3 % (0-5); Lymphocyte # 1.37 X10^3/ul (0.83-4.51); Lymphocyte % 18.1 % (19-41); Mean Corp Hgb Conc 32.6 g/dL (32-36); Mean Corpuscular Hgb 28.5 pg (27.0-32.0); Mean Corpuscular Volume 87.4 fL (81-99); Mean Platelet Vol. 9.2 fl (6.2-12.0); Monocyte# 0.62 X10^3/uL; Monocyte% 8.2 % (0-10); NRBC Flagged by Analyzer 0 % (0-5); Neutrophil % 71.6 % (47-70); Platelet Count 279 K/mm3 (150-450); RBC Distribution Width CV 13.2 % (11.6-14.6); RBC Distribution Width SD 42.8 fl (35.1-43.9); Red Blood Count 4.92 M/mm3 (4.2-5.4); White Blood Count 7.6 K/mm3 (4.4-11.0)
[2020-12-02 23:23] LABS: ALB/GLOB Ratio 0.8 RATIO (0.9-2.4); AST(SGOT) 15 U/L (15-37); Alanine Aminotransfer ALT/SGPT 17 U/L (13-56); Albumin, Serum 3.4 g/dL (3.2-5.0); Alkaline Phosphatase 91 U/L (45-117); Anion Gap 9 (5-15); BUN 11 mg/dL (7-18); BUN/Creat Ratio 20.5 RATIO (10-20); Calcium,Total 8.4 mg/dL (8.5-10.1); Chloride 106 mmol/L (98-107); Creatinine, Serum 0.54 mg/dL (0.55-1.02); EST Glomerular Filtration Rate 143 mL/min (>60); Est Glom Filt Rate - Afr Amer 173 mL/min (>60); Estimated Creatinine Clearance 122.67 ml/min; Glucose 100 mg/dL (74-106); Lipase 61 U/L (73-393); Potassium 3.5 mmol/L (3.5-5.1); Protein, Total 7.4 g/dL (6.4-8.2); Sodium Level 140 mmol/L (136-145); Total Bilirubin < 0.10 mg/dL (0.20-1.00)
[2020-12-02 23:32] LABS: Bacteria 0 SEEN /hpf (None Seen); Mucous, Urine 0 SEEN /hpf (<or=2+); Squamous Epithelial Cells - UA 0 SEEN /hpf (5-10)
[2020-12-02 23:39] LABS: Internal QC Validated? YES +Cl - CLEAR BKGD
[2020-12-02 23:40] LABS: Color, Urine Yellow (Yellow); Glucose, Dipstick Normal (Normal); Ketone-Dipstick Negative (Negative); Leukocyte Esterase-Dipstick 25 /ul (Negative); Nitrite-Dipstick Negative (Negative); Occult Blood-Urine 150 /ul (Negative); Protein-Dipstick 15 mg/dl (Negative); Specific Gravity, Urine 1.015 (1.002-1.030); Urine Bilirubin Dipstick Negative (Negative); Urine Clarity Clear (Clear); Urine Urobilinogen Normal (Normal); Urine pH 6.5 (5.0 - 8.0)
[2020-12-02 23:45] LABS: Pregnancy, Urine Negative Negative
[2020-12-02 23:47] LABS: Red Blood Cells-Urine 0-5 SEEN /hpf (0-5); White Blood Cells 0-5 SEEN /hpf (0-5)
[2020-12-03] MEDS: 0.9% Normal Saline 1,000 ML 150 ML IV (00:38)
[2020-12-03 00:39] VITALS: BP 110/69; PULSE 82; RESP 16; TEMP 36.9; O2SAT 100
[2020-12-03 00:42] VITALS: O2SAT 100
[2020-12-03] MEDS: Ciprofloxacin 500 MG Tablet PO (01:06)
[2020-12-03] MEDS: metroNIDAZOLE 500 MG Tablet PO (01:06)
[2020-12-03 01:08] VITALS: BP 116/74; PULSE 72; RESP 16; TEMP 37; O2SAT 98
[2020-12-03 01:15] VITALS: PULSE 78; TEMP 36.7
--- NOTE | 2020-12-03 01:31 | ED.RN ---
patient is aware to pump and dump and not breastfeed per medication info printed and given to patient. She is aware to call her OBGYN for confimration regarding these med instrucitons as they specialize with babies and . Pt agreeable. She is aware of basic guidelines also - empty stomach and cipro, falgyl and no alcohol, etc
--- NOTE | 2020-12-03 22:38 | CT_ITS ---
EXAM: CT ABDOMEN AND PELVIS WITH INTRAVENOUS CONTRAST : 1990 CLINICAL INDICATION: abdominal pain -- IV PO Contrast TECHNIQUE: Helically acquired images were obtained of the abdomen and pelvis with intravenous contrast. This CT exam was performed using one or more of the following dose reduction techniques: automated exposure control, adjustment of the mA and/or kV according to patient size, and/or use of iterative reconstruction technique. This report was created using [employer] report generation technology. CONTRAST: Oral Tamp; IV Breeza Neutral Tamp; 100mL Isovue-370 COMPARISON: None. FINDINGS: LOWER THORAX: Unremarkable. Lung bases are clear. No cardiomegaly. No significant pericardial effusion. ABDOMEN: LIVER: Unremarkable. Homogeneous. No focal mass. GALLBLADDER AND BILE DUCTS: Unremarkable. No calcified gallstones. No gallbladder distention or wall edema. No intra- or extrahepatic biliary ductal dilation. PANCREAS: Unremarkable. No focal cystic or solid mass. SPLEEN: Unremarkable. Normal size without focal cystic or solid mass. ADRENALS: Unremarkable. No nodules. KIDNEYS AND URETERS: Unremarkable. Normal renal size and position. No hydronephrosis. STOMACH AND BOWEL: There is mild diffuse thickening of the wall the colon in its entirety which may represent pancolitis perhaps pseudomembranous colitis. No stomach or bowel distention. PELVIS: APPENDIX: No evidence of acute appendicitis. BLADDER: Unremarkable. REPRODUCTIVE: Unremarkable as visualized. No mass. ABDOMEN and PELVIS: INTRAPERITONEAL SPACE: Unremarkable. No ascites or other fluid collection. No free air. BONES/JOINTS: Unremarkable. No suspicious lytic or blastic abnormality. SOFT TISSUES: Unremarkable. No discrete abdominal or pelvic wall hernia. VASCULATURE: Unremarkable. Abdominal aorta is non-dilated. LYMPH NODES: Unremarkable. No enlarged lymph nodes. CT/Abdomen/Pelvis WITH Contrast IMPRESSION: Mild diffuse thickening of the wall the colon which may represent pancolitis perhaps pseudomembranous colitis. There is no abscess or perforation. Individualized dose optimization techniques were used for this CT. at 0037 Reported and signed by: Tripp Wright MD Electronically Signed: Tripp Wright MD at 0:36 EDT Tel , Service support ,
== END 2020-12-03 01:33 | disposition home or self-care (01) ==
PROVIDERS: Emergency Provider Emergency Medicine; PCP Family Medicine
DX: K52.9 Noninfective gastroenteritis and colitis, unspecified (principal); F17.210 Nicotine dependence, cigarettes, uncomplicated; B96.89 Other specified bacterial agents as the cause of diseases classified elsewhere
CPT/HCPCS: 74177; 80053; 81001; 81025; 83630; 83690; 85025; 87177; 87209; 87493; 87506; 96361; 96374; 99284; J7030; Q9967

== ENCOUNTER 2021-07-18 12:05 | Outpatient (CLI) | payer SELFPAY ==
[2021-07-18 14:47] LABS: Color, Urine Yellow (Yellow); Glucose, Dipstick Normal (Normal); Ketone-Dipstick Negative (Negative); Leukocyte Esterase-Dipstick 25 /ul (Negative); Nitrite-Dipstick Negative (Negative); Occult Blood-Urine Negative /ul (Negative); Protein-Dipstick Negative (Negative); Specific Gravity, Urine 1.015 (1.002-1.030); Urine Bilirubin Dipstick Negative (Negative); Urine Clarity Clear (Clear); Urine Urobilinogen Normal (Normal); Urine pH 6.5 (5.0 - 8.0)
[2021-07-18 14:49] LABS: Absolute Lymphocyte Count 1.74 X10^3/uL (0.83-4.51); Absolute Neutrophil Count 6.3 X10^3/uL (2.0-7.7); Basophil# 0.02 X10^3/uL; Basophil% 0.2 % (0-1); Eosinophil# 0.03 X10^3/uL; Eosinophils% 0.4 % (0-5); Hemoglobin 12.5 g/dL (12.0-15.0); Lymphocyte # 1.74 X10^3/ul (0.83-4.51); Lymphocyte % 20.6 % (19-41); Mean Corp Hgb Conc 32.9 g/dL (32-36); Mean Corpuscular Hgb 28.5 pg (27.0-32.0); Mean Corpuscular Volume 86.8 fL (81-99); Mean Platelet Vol. 9.6 fl (6.2-12.0); Monocyte# 0.35 X10^3/uL; Monocyte% 4.1 % (0-10); NRBC Flagged by Analyzer 0 % (0-5); Neutrophil # 6.29 X10^3/uL (2.7-7.7); Neutrophil % 74.5 % (47-70); Platelet Count 259 K/mm3 (150-450); RBC Distribution Width CV 13.2 % (11.6-14.6); RBC Distribution Width SD 41.2 fl (35.1-43.9); Red Blood Count 4.38 M/mm3 (4.2-5.4); White Blood Count 8.5 K/mm3 (4.4-11.0)
[2021-07-18 15:23] LABS: Thyroid Stim Hormone (TSH) 0.87 uIU/mL (0.358-3.74)
[2021-07-18 15:41] LABS: HIV - WCH Non-Reactive (Nonreactive); Hepatitis B Surface Antigen Non-Reactive (Nonreactive); Hepatitis C Antibody Non-Reactive (Nonreactive); Rubella IgG Reactive (Nonreactive); Syphilis Antibodies Non-reactive
[2021-07-19 22:06] LABS: Chlamydia By Nucleic Acid AMP Negative (Negative)
[2021-07-20 16:12] LABS: Gonococcus By Nucleic Acid AMP Negative (Negative)
[2021-07-23 14:37] LABS: HPV APTIMA, High Risk Negative (Negative); HPV Reflexed? YES, CHARGE PATIENT
== END 2021-07-18 23:59 | disposition short-term general hospital (02) ==
PROVIDERS: PCP Family Medicine; Visit Provider Obstetrics & Gynecology
DX: Z34.81 Encounter for supervision of other normal pregnancy, first trimester (principal); Z12.4 Encounter for screening for malignant neoplasm of cervix; Z11.3 Encounter for screening for infections with a predominantly sexual mode of transmission
CPT/HCPCS: 36415; 81002; 84443; 85025; 86703; 86762; 86780; 86803; 87086; 87088; 87340; 87491; 87591; 87624; 88175; G0145

== ENCOUNTER → 2021-12-19 | Outpatient (CLI) | payer SELFPAY ==
[2021-12-19 14:47] LABS: Hematocrit 31.9 % (37-47); Hemoglobin 10.5 g/dL (12.0-15.0); Mean Corp Hgb Conc 32.9 g/dL (32-36); Mean Corpuscular Hgb 29.5 pg (27.0-32.0); Mean Corpuscular Volume 89.6 fL (81-99); Mean Platelet Vol. 9.8 fl (6.2-12.0); Platelet Count 271 K/mm3 (150-450); RBC Distribution Width CV 13.7 % (11.6-14.6); RBC Distribution Width SD 45.2 fl (35.1-43.9); Red Blood Count 3.56 M/mm3 (4.2-5.4); White Blood Count 10.9 K/mm3 (4.4-11.0)
[2021-12-19 14:52] LABS: Glucose Challenge Gest 1H 50g 180 mg/dL (70-140)
== END | disposition home or self-care (01) ==
LOC: WOBLAB 13:32
PROVIDERS: PCP Family Medicine; Visit Provider Obstetrics & Gynecology
DX: Z34.83 Encounter for supervision of other normal pregnancy, third trimester (principal)
CPT/HCPCS: 36415; 82950; 85027

== ENCOUNTER → 2021-12-24 | Outpatient (CLI) | payer OTHER, SELFPAY ==
[2021-12-24 09:38] LABS: Glucose GTT-Gestation. Fasting 79 mg/dL (<105)
[2021-12-24 11:00] LABS: Glucose GTT-Gestational 1 Hr 172 mg/dL (<190)
[2021-12-24 11:13] LABS: Glucose GTT-Gestational 2 Hr 123 mg/dL (<165)
[2021-12-24 12:45] LABS: Glucose GTT-Gestational 3 Hr 105 L (<145)
== END | disposition home or self-care (01) ==
PROVIDERS: PCP Family Medicine; Visit Provider Student in an Organized Health Care Education/Training Program
DX: O24.912 Unspecified diabetes mellitus in pregnancy, second trimester (principal)
CPT/HCPCS: 36415; 82951; 82952

== ENCOUNTER → 2022-02-12 | Outpatient (CLI) | payer OTHER, SELFPAY | END | disposition home or self-care (01) | LOC: LABSPEC 12:15 | PROVIDERS: PCP Family Medicine; Visit Provider Student in an Organized Health Care Education/Training Program | DX: Z36.85 Encounter for antenatal screening for Streptococcus B (principal) | CPT/HCPCS: 87081 ==

== ENCOUNTER → 2022-02-24 | Outpatient (CLI) | payer OTHER, SELFPAY ==
[2022-02-24 14:35] LABS: Absolute Lymphocyte Count 0.81 X10^3/uL (0.83-4.51); Absolute Neutrophil Count 5.1 X10^3/uL (2.0-7.7); Basophil# 0.01 X10^3/uL; Basophil% 0.2 % (0-1); Hematocrit 36.3 % (37-47); Hemoglobin 11.9 g/dL (12.0-15.0); Lymphocyte # 0.81 X10^3/ul (0.83-4.51); Mean Corp Hgb Conc 32.8 g/dL (32-36); Mean Corpuscular Volume 88.5 fL (81-99); Mean Platelet Vol. 10.5 fl (6.2-12.0); Monocyte# 0.26 X10^3/uL; Monocyte% 4.2 % (0-10); NRBC Flagged by Analyzer 0 % (0-5); Neutrophil # 5.12 X10^3/uL (2.7-7.7); Neutrophil % 81.8 % (47-70); Platelet Count 187 K/mm3 (150-450); RBC Distribution Width CV 13.8 % (11.6-14.6); RBC Distribution Width SD 44.2 fl (35.1-43.9); White Blood Count 6.3 K/mm3 (4.4-11.0)
[2022-02-24 15:04] LABS: ALB/GLOB Ratio 0.6 RATIO (0.9-2.4); AST(SGOT) 15 U/L (15-37); Alanine Aminotransfer ALT/SGPT 10 U/L (13-56); Albumin, Serum 2.3 g/dL (3.2-5.0); Alkaline Phosphatase 211 U/L (45-117); Anion Gap 7 (5-15); BUN 7 mg/dL (7-18); BUN/Creat Ratio 13.5 RATIO (10-20); Calcium,Total 8.4 mg/dL (8.5-10.1); Chloride 108 mmol/L (98-107); Creatinine, Serum 0.52 mg/dL (0.55-1.02); EST Glomerular Filtration Rate 147 mL/min (>60); Est Glom Filt Rate - Afr Amer 178 mL/min (>60); Globulin 3.9 g/dL (2.2-4.2); Glucose 83 mg/dL (74-106); Potassium 3.8 mmol/L (3.5-5.1); Protein, Total 6.2 g/dL (6.4-8.2); Sodium Level 137 mmol/L (136-145)
== END | disposition home or self-care (01) ==
LOC: WOBLAB 14:12
PROVIDERS: PCP Family Medicine; Visit Provider Student in an Organized Health Care Education/Training Program
DX: O21.2 Late vomiting of pregnancy (principal); Z3A.00 Weeks of gestation of pregnancy not specified
CPT/HCPCS: 36415; 80053; 85025

== ENCOUNTER 2022-03-10 03:50 | Inpatient (IN) | payer SELFPAY, OTHER ==
[2022-03-10] VITALS (38 sets, daily range): BP systolic 105–166; BP diastolic 56–86; PULSE 55–84; RESP 16; TEMP 36.2–36.9; O2SAT 94–100; BMI 28.9
[2022-03-10] MEDS: LACTATED RINGERS 500 ML 999 ML IV ×2 (04:00→07:00)
[2022-03-10 04:14] LABS: Absolute Lymphocyte Count 3.16 X10^3/uL (0.83-4.51); Absolute Neutrophil Count 5.8 X10^3/uL (2.0-7.7); Basophil# 0.02 X10^3/uL; Basophil% 0.2 % (0-1); Eosinophil# 0.06 X10^3/uL; Eosinophils% 0.6 % (0-5); Hematocrit 38.1 % (37-47); Hemoglobin 12.2 g/dL (12.0-15.0); Lymphocyte # 3.16 X10^3/ul (0.83-4.51); Lymphocyte % 32.3 % (19-41); Mean Corpuscular Hgb 28.1 pg (27.0-32.0); Mean Corpuscular Volume 87.8 fL (81-99); Mean Platelet Vol. 11.3 fl (6.2-12.0); Monocyte# 0.71 X10^3/uL; Monocyte% 7.3 % (0-10); NRBC Flagged by Analyzer 0 % (0-5); Neutrophil # 5.75 X10^3/uL (2.7-7.7); Neutrophil % 58.8 % (47-70); Platelet Count 211 K/mm3 (150-450); RBC Distribution Width CV 13.7 % (11.6-14.6); RBC Distribution Width SD 43.3 fl (35.1-43.9); Red Blood Count 4.34 M/mm3 (4.2-5.4); White Blood Count 9.8 K/mm3 (4.4-11.0)
[2022-03-10] MEDS: Lactated Ringers 1,000 ML 50 ML IV (04:31)
--- NOTE | 2022-03-10 04:42 | HP.PCM.OB_ITS ---
History and Physical Date of Admission: 03/10/22 Chief complaint: Contractions History present illness: 32-year-old G2, P1 at 40 weeks and 1 day with MIKE 03/09/2022 arrives with contractions. Denies headache, visual changes, chest pain, shortness of breath, nausea vomit, right upper quadrant pain. Patient states good movement. Obstetric history: G1: 39-week female 6 pounds 4 ounces G2: Current Past medical history: None Medications: None Past surgical history: [place] teeth extraction Family history: Denies history DVT or PE Social history: 1 pack/day smoker, denies alcohol or drug use Allergies: Nickel Review of systems Besides above pertinent positives a full review of systems was performed and found to be negative Physical exam: Vitals: Blood pressure 133/71 pulse 68 General: Normal-appearing no acute distress HEENT: Normocephalic atraumatic no cervical of adenopathy Cardiac/respiratory: No use of accessory muscles, nonlabored breathing Abdomen: Soft, nontender, gravid Pelvic exam: Cervical exam 8/80/-1 Extremities: No peripheral edema normal peripheral pulses Psych: Normal affect normal demeanor nonpressured speech Labs: White blood cell count 9.8 hemoglobin 12.2 hematocrit 38.1% platelets 211. Assessment and plan: 32-year-old G2, P1 at 40 weeks and 1 day arrives in labor Admit labor and delivery CEFM GBS negative Routine orders Anesthesia to see
[2022-03-10] MEDS: fentaNYL-bupivacaine (epidural) 100 ML BAG EPIDURAL (05:06)
[2022-03-10] MEDS: Oxytocin 30 units/NS 500 ml 30 UNITS/500 ML IV.SOLN 334 UNITS IV (07:25)
--- NOTE | 2022-03-10 07:40 | OP.PCM_ITS ---
Vaginal Delivery Findings Description of Procedure: Normal spontaneous vaginal delivery of a viable male , vertex JOE. Head and shoulders delivered with ease. Cord cut and clamped. Baby handed off to patient. Placenta delivered via cord traction and fundal massage. Second- degree midline perineal laceration noted and repaired in typical fashion. EBL 250 cc Apgars 9/9
[2022-03-11 04:40] VITALS: BP 136/80; PULSE 67; RESP 16; TEMP 36.3
--- NOTE | 2022-03-11 07:58 | PN.OBGYN_ITS ---
Subjective Subjective No overnight complaints Objective Data Objective Data Vital Signs: Vital Signs Temp Pulse Resp BP Pulse Ox O2 Del Method 97.4 F L 67 16 136/80 H 98 Room Air 03/11/22 04:40 03/11/22 04:40 03/11/22 04:40 03/11/22 04:40 03/10/22 08:42 03/11/22 04:40 Oxygen Delivery Method Room Air Weight: 158 lb Body Mass Index (BMI) 28.9 Intake & Output: Intake and Output for Last 24 Hours 03/09/22 03/10/22 03/11/22 23:59 23:59 23:59 Intake Total 1644.50 / 1644.50 Output Total 600 / 600 Balance 1044.50 / 1044.50 Lab / Micro Data Result Diagrams: 03/10/22 04:00 Micro: Microbiology 03/10/22 04:00 Nasal Secretion SARS-CoV-2 Antigen (Rapid) - Final Physical Exam Const alert, oriented x3, no apparent distress, average body habitus, healthy appearing and well nourished HEENT normocephalic and moist oral mucous membranes Eyes PERRL Neck full ROM Resp normal respiratory effort, no retractions and no use of accessory muscles GI GI Narrative: Soft, nontender, uterus firm and below umbilicus Extremity normal to inspection, full ROM and no clubbing, cyanosis or edema Neuro moves all extremities and no focal motor deficits Psych mental status grossly normal, affect normal, speech normal and activity/motor behavior normal Assessment & Plan (1) Vaginal delivery: PLAN: day 1. Breast-feeding. Pain well controlled. 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
--- NOTE | 2022-03-11 07:58 | DCINST_ITS ---
Discharge Instructions Diet Discharge Diet: No restrictions Activity Discharge Activity: Return to Normal Activity, May Drive and May Shower May resume sexual activity in: 4-6 weeks Weight Bearing Status: Weight bearing as tolerated Dressing / Incision Call your doctor if your incision/area has: Continuous Slow Oozing and Foul Smelling Discharge Call your doctor if you observe: Fever of 101 or Higher, Shortness of breath and Chest pain Follow Up Care Please Follow Up With: Narinder Dinh MD When: 4 to 6 weeks Test Results: Test results from this visit will be discussed in further detail at your follow- up appointment, if applicable. Discharge Plan Admission Admit Date/Time: 03/10/22 03:50 Attending Provider: Narinder Dinh Primary Care Provider: Marika Maddox Discharge Orders/Prescriptions Referrals / Follow Up: Marika Maddox DO [Primary Care Provider] - Disposition Discharge Orders: Discharge Patient (Routine); Ordered 03/11/22 Ordered By: Dr. Narinder Dinh
[2022-03-11 08:23] VITALS: BP 123/67; PULSE 66; RESP 16; TEMP 36.5
--- NOTE | 2022-03-11 10:28 | NURSING ---
Reviewed and agreed with Val RN charting.
== END 2022-03-11 11:00 | disposition home or self-care (01) | DRG 807 ==
LOC: WPOUT 03:53 → WP 03:53
PROVIDERS: Admitting Provider Obstetrics & Gynecology; PCP Family Medicine; Visit Provider Obstetrics & Gynecology
DX: O70.1 Second degree perineal laceration during delivery (principal); Z37.0 Single live birth; F17.210 Nicotine dependence, cigarettes, uncomplicated; Z3A.40 40 weeks gestation of pregnancy; O99.334 Smoking (tobacco) complicating childbirth
CPT/HCPCS: 59025; 59050; 85025; 86850; 86900; 86901; 87426; 99218; J7120; G0378

== ENCOUNTER → 2022-04-30 | Outpatient (CLI) | payer OTHER, SELFPAY ==
--- NOTE | 2022-04-30 | CER_PTH ---
PATIENT: ELVIA PARKER LOC: [facility] U#:[id number] AGE/SX: 32/F ROOM: RE04/30/[address]: Dr. Nimo Dinh DO : 1990 BED: DIS: 04/30/2022 SPEC #: [id number] RECD: 04/30/22 15:47 STATUS: ANKUSH REQ #: [id number] NIRAJ: 04/30/22 00:[address]: Nimo Dinh DEPT: SURGICAL PATHOLOGY RECD BY: Dimitry Ferrera ENTERED: 05/01/22 08:45 SP TYPE: CERV OTHR DR: Dr. Marika Maddox, Tissues: Uterine cervix, NOS Procedures: Surgery Specimen Level IV HEADER OPERATION: Cervical biopsy PRE-OP DIAGNOSIS: N88.9 TISSUE SUBMITTED: Cervical biopsy MICROSCOPIC DIAGNOSIS Cervix, biopsy: Autolyzed and hemorrhagic tissue. See comment. AM:sudarshan 05/02/2022 COMMENT The specimen contains autolyzed and hemorrhagic tissue with a villous type architecture. Dystrophic calcifications are randomly scattered throughout the specimen. There is no evidence of malignancy. Clinical correlation is necessary. MICROSCOPIC DESCRIPTION Slides are reviewed. GROSS DESCRIPTION Received in fixative is one container labeled with the patient's name and designated cervical biopsy. The specimen consists of an irregular fragment of fox-red soft tissue measuring 1.5 x 1 x 0.3 cm. The specimen is serially sectioned and totally submitted in one cassette. / AM:sudarshan 05/01/2022 TC:5 CPT: 10530
== END | disposition home or self-care (01) ==
LOC: LABSPEC 15:10
PROVIDERS: PCP Family Medicine; Visit Provider Student in an Organized Health Care Education/Training Program
DX: N88.9 Noninflammatory disorder of cervix uteri, unspecified (principal)
CPT/HCPCS: 88305

== ENCOUNTER 2022-05-02 08:10 | Day surgery (SDC) | payer SELFPAY ==
[2022-05-02] VITALS (8 sets, daily range): BP systolic 89–116; BP diastolic 55–82; PULSE 44–80; RESP 14–16; TEMP 36.4–36.6; O2SAT 96–99; BMI 24.6
--- NOTE | 2022-05-02 | CER_PTH ---
PATIENT: ELVIA PARKER LOC: [facility] [place] U#:[id number] AGE/SX: 32/F ROOM: RE05/02/[address]: Dr. Nimo Dinh DO : 1990 BED: DIS: 05/02/2022 SPEC #: [id number] RECD: 05/02/22 14:38 STATUS: ANKUSH REQ #: [id number] NIRAJ: 05/02/22 00:[address]: Nimo Dinh DEPT: SURGICAL PATHOLOGY RECD BY: Dimitry Ferrera ENTERED: 05/02/22 14:38 SP TYPE: CERV OTHR DR: LOLY Canales Tissues: Uterine cervix, NOS Procedures: Surgery Specimen Level IV HEADER OPERATION: Exam under anesthesia, D & C, excision of cervical mass PRE-OP DIAGNOSIS: 7 weeks presenting with prolonged bleeding, cervical mass TISSUE SUBMITTED: Cervical mass and endometrial curettings MICROSCOPIC DIAGNOSIS Cervical mass and endometrial curettings: Fragments of placental tissue with infarction, autolytic changes and extensive microcalcifications. Proliferative endometrium with chronic endometritis. AM:sudarshan 05/06/2022 MICROSCOPIC DESCRIPTION Slides are reviewed. GROSS DESCRIPTION Received in fixative is one container labeled with the patient's name and designated cervical mass. The specimen consists of multiple irregular fragments of light fox soft tissue that in aggregate measure 5 x 4 x 1.6 cm. The specimen is totally submitted in 14 cassettes. / AM:sudarshan 05/02/2022 TC:3 CPT: 00497
--- NOTE | 2022-05-02 07:30 | HP.PCM.OB_ITS ---
History and Physical Date of Admission: 05/02/22 HPI: 32-year-old G2, P2 7 weeks presenting with prolonged bleeding and cervical mass. Denies fevers or chills, nausea or vomiting, headache or vision changes, chest pain or shortness of breath, diarrhea or constipation. Patient was found to have cervical mass at visit this week. [facility] history . x2. 7 weeks Medical history: Denies Surgical history: [place] teeth extraction Allergies: Nickel Family history: No history of blood clots or bleeding disorders. Otherwise noncontributory. Social history: Reports tobacco abuse. Denies alcohol or drug use Medications: None Review of system negative otherwise stated above Physical exam: Vitals: pending General: No acute distress HEENT: Normal cephalic/atraumatic, PERRLA Cardiorespiratory: No increased effort, lungs clear to auscultation bilaterally, regular heart rate Abdomen: Soft, nontender, nondistended Extremities: No edema Neurologic: Cranial nerves II through XII grossly intact, no focal deficits Musculoskeletal: Strength out of 5 throughout all extremities Assessment/plan: 32-year-old female with cervical mass working diagnosis retained placenta versus prolapsed fibroid. Plan for exam under anesthesia, hysteroscopy, dilation curettage, excision of cervical mass. Possible diagnostic laparoscopy, possible hysterectomy. All risk, benefits, alternatives discussed with patient. Risks include but are not limited to: Risk of bleeding to the point transfusion, infection, injury to surrounding tissue including bowel/bladder/major abdominal vessels, uterine perforation, VTE, ICU admission, risk of hysterectomy. Patient aware and consented.
[2022-05-02 09:04] LABS: Internal QC Validated? YES +Cl - CLEAR BKGD; Pregnancy, Urine Negative Negative
[2022-05-02 09:11] LABS: Hemoglobin 13.9 g/dL (12.0-15.0); Mean Corp Hgb Conc 33.1 g/dL (32-36); Mean Corpuscular Hgb 28.8 pg (27.0-32.0); Mean Corpuscular Volume 87.1 fL (81-99); Mean Platelet Vol. 8.8 fl (6.2-12.0); Platelet Count 248 K/mm3 (150-450); RBC Distribution Width CV 13.8 % (11.6-14.6); RBC Distribution Width SD 44.2 fl (35.1-43.9); Red Blood Count 4.82 M/mm3 (4.2-5.4); White Blood Count 6.7 K/mm3 (4.4-11.0)
[2022-05-02] MEDS: Lactated Ringers 1,000 ML 125 ML IV ×2 (09:14→11:08)
[2022-05-02] MEDS: Cefazolin 2 GM in 0.9% Normal Saline 100 ML IV (09:54)
[2022-05-02] MEDS: FERRIC SUBSULFATE 8 GM SOLN (10:20)
--- NOTE | 2022-05-02 10:25 | OP.PCM_ITS ---
Report of Operation Date of Procedure: 05/02/22 Pre-Operative Diagnosis: Cervical mass Post-Operative Diagnosis: Cervical mass Surgery/Procedure Performed:: Exam under anesthesia, excision of cervical mass, endometrial curettage Description of Surgical Findings:: Normal-appearing external genitalia. Cervix dilated to 3 cm. Friable appearing cervical mass at cervical os. Cervical mass approximately 3 x 4 cm ovoid, portions of necrotic tissue. Ultrasound completed after excision of cervical mass noting thin endometrial lining. supervisor core shop: Narinder Dinh Type of Anesthesia: General Specimen's removed: Cervical mass, endometrial curettings Estimated Blood Loss (mL): 10 cc Fluids Replaced: 600cc Description of Procedure: 32-year-old female with cervical mass plan for exam under anesthesia, hysteroscopy dilation and curettage, excision of cervical mass, possible diagnostic laparoscopy, possible hysterectomy. All risk, benefits, alternatives discussed the patient. Risk include but are not limited to: Risk of bleeding twin transfusion, infection, injury to surrounding tissue including bowel/bladder/major abdominal vessels, VTE, ICU admission, hysterectomy. Patient aware and consented. Procedure: Patient taken to the operating room placed under general anesthesia. Patient placed in the dorsal lithotomy position and prepped and draped in the usual sterile fashion. Weighted speculum placed in posterior vagina and Ulloa retractor used to visualize cervix. Anterior lip of the cervix grasped with Allis clamp. Cervical findings as noted as above. Cervical mass grasped with ring forceps and removed into large pieces. Additional portions removed with ring forceps. Endometrial curetting completed in a 360 degree manner. Ultrasound completed at bedside with findings as above with thin endometrial lining. Allis clamp removed. Cervix monitored for bleeding. No active bleeding noted. Monsel's placed along the cervix. Cervix confirmed hemostatic. Retractors removed. At the end of the procedure all needle, lap, sponge counts were correct. UOP: 50cc Complications None
[2022-05-02] MEDS: Sugammadex Sodium 200 MG/2 ML VIAL IV (10:26)
--- NOTE | 2022-05-02 10:32 | DCINST_ITS ---
Discharge Instructions Diet Discharge Diet: No restrictions Activity Discharge Activity: Return to Normal Activity and May Shower May resume sexual activity in: 2 weeks Weight Bearing Status: Weight bearing as tolerated Lifting Restrictions: None Dressing / Incision Call your doctor if you observe: Fever of 101 or Higher, Change in Color, Inability to urinate, Using more than 1 pad per hour, Shortness of breath, Dizziness, Swelling in the ankles, Chest pain and Calf discomfort Follow Up Care Please Follow Up With: Nimo Dinh DO When: 1-2 week postoperative visit Test Results: Test results from this visit will be discussed in further detail at your follow- up appointment, if applicable. Discharge Plan Admission Primary Reason for Your Visit: Excision of cervical mass Attending Provider: Nimo Dinh Primary Care Provider: Judi Workman Discharge Orders/Prescriptions Prescriptions: No Action NK Referrals / Follow Up: Judi Workman PA [Primary Care Provider] - Disposition Disposition (needs filled in before D/C Order can be placed): Home, Self Care
--- NOTE | 2022-05-02 11:11 | SUR.PHASEI ---
WAS VERY TEARFUL UPON AWAKENING, STATES RELIEVED SHE DID NOT HAVE A HYSTERECTOMY OR ANYTHING MORE INVASIVE. COMFORT AND SUPPORT PROVIDED. DENIES PAIN OR NAUSEA. RESTING QUIETLY, NO S/S DISTRESS, VSS.
== END 2022-05-02 12:40 | disposition home or self-care (01) ==
LOC: SDC 08:13 → AC 08:13
PROVIDERS: Anesthesiology; Referring Provider Student in an Organized Health Care Education/Training Program; Visit Provider Student in an Organized Health Care Education/Training Program
PROC: 0UT9FZZ Resection of Uterus, Via Natural or Artificial Opening With Percutaneous Endoscopic Assistance (ICD-10-PCS; CPT 58558; principal; 2022-05-02 09:05)
DX: O86.12 Endometritis following delivery (principal); O99.893 Other specified diseases and conditions complicating puerperium; N88.9 Noninflammatory disorder of cervix uteri, unspecified; Z3A.01 Less than 8 weeks gestation of pregnancy
CPT/HCPCS: 58558; 00952; 81025; 85027; 86850; 86900; 86901; 88305; J7120; J2405

== ENCOUNTER → 2025-04-17 | Outpatient (CLI) | payer SELFPAY ==
[2025-04-17 15:20] LABS: Hematocrit 31.9 % (37-47); Hemoglobin 10.6 g/dL (12.0-15.0); Immature Granulocytes Count 0.050 X10^3/uL (0.0-0.0); Mean Corp Hgb Conc 33.2 g/dL (32-36); Mean Corpuscular Volume 88.1 fL (81-99); Mean Platelet Vol. 9.8 fl (6.2-12.0); NRBC Flagged by Analyzer 0 % (0-5); Platelet Count 284 K/mm3 (150-450); RBC Distribution Width CV 13.5 % (11.6-14.6); RBC Distribution Width SD 43.5 fl (35.1-43.9); Red Blood Count 3.62 M/mm3 (4.2-5.4); White Blood Count 9.1 K/mm3 (4.4-11.0)
[2025-04-17 16:00] LABS: AST(SGOT) 14 U/L (<=31); Alanine Aminotransfer ALT/SGPT 15 U/L (<=34); Albumin, Serum 3.5 g/dL (3.5-5.0); Alkaline Phosphatase 76 U/L (35-104); Anion Gap 10 (5-15); BUN 5 mg/dL (4-19); BUN/Creat Ratio 14.6 RATIO (10-20); CRP 5.17 mg/L (0.0-3.0); Calcium,Total 8.4 mg/dL (7.6-11.0); Carbon Dioxide 20.4 mmol/L (21.0-32.0); Chloride 104 mmol/L (98-108); Globulin 2.9 g/dL (2.2-4.2); Glucose 75 mg/dL (70-99); Magnesium 2.1 mg/dL (1.5-2.2); Potassium 3.7 mmol/L (3.3-5.1); Vitamin B12 223 pg/mL (180-914)
[2025-04-19 15:08] LABS: Folate, Hemolysate Test 510.0 ng/mL (Not Estab.); Folate, RBC (Hct) Test 33.0 % (34.0-46.6); Folates, RBC Test 1545 ng/mL (>498)
[2025-04-20 13:08] LABS: ANTINUCLEAR ANTIBODIES DIRECT Negative (Negative); Vitamin D 1,25-Dihydroxy 104.0 pg/mL (24.8-81.5)
== END | disposition home or self-care (01) ==
LOC: MTLAB 12:55
DX: G35.D Multiple sclerosis, unspecified (principal); R20.2 Paresthesia of skin
CPT/HCPCS: 36415; 80053; 82607; 82652; 82747; 83735; 85014; 85025; 85652; 86038; 86140; 86225